=== PATIENT | female | born 1950 | race Two or more races ===

== ENCOUNTER 2022-04-10 17:34 | Emergency (ER) | payer MEDICARE, OTHER ==
[2022-04-10 17:41] VITALS: BP 156/75; PULSE 67; RESP 16; TEMP 98.1
--- NOTE | 2022-04-10 18:32 | ED ---
Eye Problem HPI - General Chief complaint: Eye Problems Stated complaint: vision issues Time Seen by Provider: 04/10/22 18:05 Source: patient Mode of arrival: wheelchair Limitations: no limitations - History of Present Illness Initial comments: This is a pleasant 71-year-old female presents the emergency department stating that she has had a visual field loss to disappear aspect of her right eye starting about 5 PM today. Patient states that prior to that she has had some intermittent blurred vision in her right eye since Wednesday. Patient denying any pain. She denies any other symptomology. No headache, no fever or chills, no changes in vision or hearing, no sore throat or difficulty with speech, no neck pain, no chest pain or shortness of breath, no abdominal pain, no nausea or vomiting, no changes in urination or bowel movements, no numbness or tingling, no extremity pain, no skin rashes or lesions. MD chief complaint: vision change - Related Data Allergies Allergy/AdvReac Type Severity Reaction Status Date / Time codeine Allergy Rash/Hives Verified 04/10/22 17:37 Review of Systems ROS Statement: Those systems with pertinent positive or pertinent negative responses have been documented in the HPI. ROS Other: All systems not noted in ROS Statement are negative. Past Medical History Past Medical History: No Reported History History of Any Multi-Drug Resistant Organisms: None Reported Past Surgical History: Appendectomy Past Psychological History: No Psychological Hx Reported Smoking Status: Never smoker Past Drug Use History: None Reported General Exam Limitations: no limitations General appearance: alert, in no apparent distress Head exam: Present: atraumatic, normocephalic, normal inspection Eye exam: Present: normal appearance, PERRL, EOMI, other (Right visual field loss by confrontation. Appears to affect the upper 60% of the visual field). Absent: scleral icterus, conjunctival injection, periorbital swelling, periorbital tenderness Pupils: Present: normal accommodation Expanded Eyelids: Normal Inspection: Bilateral Pupils: Regular, Round: Bilateral, Reactive: Bilateral Sclera/Conjunctival: Normal Inspection: Bilateral Anterior chamber: Normal Inspection: Bilateral Visual acuity (R) = 20/: 200 (Patient has actually lost her central vision) Visual acuity (L) = 20/: 30 ENT exam: Present: normal exam, normal oropharynx, mucous membranes moist. Absent: mucous membranes dry Neck exam: Present: normal inspection. Absent: tenderness, meningismus, lymphadenopathy Respiratory exam: Present: normal lung sounds bilaterally. Absent: respiratory distress, wheezes, rales, rhonchi, stridor Cardiovascular Exam: Present: regular rate, normal rhythm, normal heart sounds. Absent: systolic murmur, diastolic murmur, rubs, gallop, clicks GI/Abdominal exam: Present: soft, normal bowel sounds. Absent: distended, tenderness, guarding, rebound, rigid Extremities exam: Present: normal inspection, full ROM, normal capillary refill. Absent: tenderness, pedal edema, joint swelling, calf tenderness Back exam: Present: normal inspection Neurological exam: Present: alert, oriented X3, CN II-XII intact Psychiatric exam: Present: normal affect, normal mood Skin exam: Present: warm, dry, intact, normal color. Absent: rash Course Vital Signs 04/10/22 17:37 Temperature 98.1 F Pulse Rate 67 Respiratory 16 Rate Blood Pressure 156/75 O2 Sat by Pulse 99 Oximetry - Consultations Consultation #1: Case discussed in detail with the on-call nurse private duty, Dr. Gomez who concurs this is consistent with a retinal detachment. He suggested transferring the patient to [facility]. Consultation #2: Discussed with [facility], patient be transferred here to the ER, Dr. Up excepting Procedures - Procedures Initial comment: Bedside ultrasound consistent with a retinal attachment, performed by me. Patient tolerated well. Medical Decision Making - Medical Decision Making Patient has painless visual field loss involving the upper 60% of the visual field on the right. Ultrasound consistent with a retinal detachment. Patient has no other symptomology. We'll consult ophthalmology The case was discussed in detail with ED attending physician. Presentation, findings, treatment plan discussed in detail. Findings consistent with retinal detachment. We'll obtain a visual acuity. Discussed transfer with the patient. She concurs with transfer. We'll discuss with [facility]. [employer] Dr. Alfaro - Lab Data Result diagrams: 04/10/22 18:35 Lab Results 04/10/22 Range/Units 18:35 WBC 7.6 (3.8-10.6) k/uL RBC 4.05 (3.80-5.40) m/uL Hgb 13.1 (11.4-16.0) gm/dL Hct 39.3 (34.0-46.0) % MCV 97.1 (80.0-100.0) fL MCH 32.2 (25.0-35.0) pg MCHC 33.2 (31.0-37.0) g/dL RDW 12.8 (11.5-15.5) % Plt Count 226 (150-450) k/uL MPV 7.2 Neutrophils % 59 % Lymphocytes % 26 % Monocytes % 7 % Eosinophils % 4 % Basophils % 3 % Neutrophils # 4.5 (1.3-7.7) k/uL Lymphocytes # 2.0 (1.0-4.8) k/uL Monocytes # 0.5 (0-1.0) k/uL Eosinophils # 0.3 (0-0.7) k/uL Basophils # 0.2 (0-0.2) k/uL Disposition Clinical Impression: 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 Specs Out of Hospital Transfer - Requested Specifics: Other Emergency Center ([facility])
[2022-04-10 18:49] LABS: Basophils # (A) 0.2 k/uL (0-0.2); Basophils % (A) 3 %; Eosinophils # (A) 0.3 k/uL (0-0.7); Eosinophils % (A) 4 %; HCT 39.3 % (34.0-46.0); HGB 13.1 gm/dL (11.4-16.0); Lymphocytes % (A) 26 %; MCH 32.2 pg (25.0-35.0); MCHC 33.2 g/dL (31.0-37.0); MCV 97.1 fL (80.0-100.0); Mean Platelet Volume 7.2; Monocytes # (A) 0.5 k/uL (0-1.0); Monocytes % (A) 7 %; Neutrophils # (A) 4.5 k/uL (1.3-7.7); Neutrophils % (A) 59 %; Platelet Count 226 k/uL (150-450); RBC 4.05 m/uL (3.80-5.40); RDW 12.8 % (11.5-15.5); WBC 7.6 k/uL (3.8-10.6)
[2022-04-10 19:04] LABS: African American GFR (CKD) >90 (>60 ml/min/1.73 sqM); Anion Gap 8 mmol/L; Blood Urea Nitrogen 10 mg/dL (7-17); Calcium 9.3 mg/dL (8.4-10.2); Carbon Dioxide 25 mmol/L (22-30); Chloride 99 mmol/L (98-107); Glucose 102 mg/dL (74-99); Non-African American GFR(CKD) 81 (>60 ml/min/1.73 sqM); Potassium 3.7 mmol/L (3.5-5.1); Sodium 132 mmol/L (137-145)
== END 2022-04-10 19:55 | disposition other institution (70) ==
LOC: EC 17:34
DX: H33.21 Serous retinal detachment, right eye (principal); Z88.5 Allergy status to narcotic agent
CPT/HCPCS: 36415; 80048; 85025; 99283

== ENCOUNTER → 2025-04-04 | Outpatient (CLI) | payer MEDICARE ==
--- NOTE | 2025-04-04 15:42 | MM ---
Reason for Exam: Screening (asymptomatic). Last mammogram was performed 1 year(s) and 3 month(s) ago. Patient History: Menarche at age 15. First Full-Term at age 25. Postmenopausal. Maternal grandmother had breast cancer, age 67. Risk Values: Snehal 5 year model risk: 1.6%. NCI Lifetime model risk: 4.1%. Tissue Density: The breasts are heterogeneously dense, which may obscure small masses. Findings: Analyzed By CAD. There is no suspicious group of microcalcifications or new suspicious mass in either breast. Overall Assessment: Negative, BI-RAD 1 Management: Screening Mammogram of both breasts in 1 year. Patient should continue monthly self-breast exams. A clinical breast exam by your physician is recommended on an annual basis. This exam should not preclude additional follow-up of suspicious palpable abnormalities. Note on Snehal scores and lifetime risk: 1. A Snehal score greater than 3% is considered moderate risk. If this is the case, consider specialist referral to assess eligibility for a risk reducing agent. 2. If overall lifetime risk for the development of breast cancer is 20% or higher, the patient may qualify for future screening with alternating mammogram and breast MRI. [facility], , 04/04/2025 3:39 PM. Electronically signed and approved by: Almas Short M.D. Radiologist
--- NOTE | 2025-04-04 15:57 | BD ---
EXAMINATION TYPE: Axial Bone Density DATE OF EXAM: 04/04/2025 CLINICAL HISTORY: 74 years old Female. ICD-10 CODE: Z78.0 ASYMPTOMATIC MENOPAUSAL STATE , Additional History: Height: 5 ft 3 in Weight: 117 FRAX RISK QUESTIONS: Alcohol (3 or more units per day): no Family History (Parent hip fracture): no Glucocorticoids (More than 3mos): no (Ex: prednisone, prednisolone, methylprednisolone, dexamethasone, and hydrocortisone). History of Fracture in Adulthood: no Secondary Osteoporosis: 1. Type 1 Diabetes: no 2. Hyperthyroidism: no 3. Menopause before 45: no 4. Malnutrition: no 5. Chronic liver disease: no Rheumatoid Arthritis: no Current Tobacco Use: yes RISK FACTORS HISTORY OF: Surgery to Spine/Hip(right/left)/Wrist (right/left): no MEDICATIONS: Thyroid Medications: none Osteoporosis Medications: none EXAM MEASUREMENTS: Bone mineral densitometry was performed using the [employer]. Bone mineral density as measured about the Lumbar spine is: ----- L1-L4(G/cm2): 0.985 T Score Values are as follows: ----- L1: -1.9 ----- L2: -1.9 ----- L3: -1.1 ----- L4: -1.8 ----- L1-L4: -1.6 Z Score Values are as follows: ----- L1: 0.2 ----- L2: 0.2 ----- L3: 1.0 ----- L4: 0.3 ----- L1-L4: 0.5 prev done elsewhere Bone mineral density about the R hip (g/cm2): 0.897 Bone mineral density about the L hip (g/cm2): 0.870 T Score values are as follows: -----R Neck: -1.0 -----L Neck: -1.2 -----R Total: -1.2 -----L Total: -1.1 Z Score values are as follows: -----R Neck: 1.1 -----L Neck: 0.9 -----R Total: 0.7 -----L Total: 0.8 prev done elsewhere FRAX%s: The graph provided illustrates a 8.7 % chance for a major osteoporotic fx and a 1.3 % chance for the hips probability for fx in 10 years time. IMPRESSION: Osteopenia (T Score between -2.5 and -1). There is slightly increased risk of fracture and the patient may be considered for treatment. Re-Screen 2-5 years. NOTE: T-SCORE=SD OF THE YOUNG ADULT MEAN. [facility], , 04/04/2025 3:55 PM
== END | disposition home or self-care (01) ==
LOC: RADMAMWWP 12:39
PROVIDERS: ATTEND Family Medicine
DX: Z12.31 Encounter for screening mammogram for malignant neoplasm of breast (principal); M85.89 Other specified disorders of bone density and structure, multiple sites; R92.333 Mammographic heterogeneous density, bilateral breasts; Z78.0 Asymptomatic menopausal state; Z80.3 Family history of malignant neoplasm of breast
CPT/HCPCS: 77063; 77067; 77080